=== PATIENT | female | born 1980 | race African-American/Black ===

== ENCOUNTER 2018-11-03 11:06 | Day surgery (SDC) | payer MEDICAID ==
[2018-11-03 12:56] LABS: ADD MAN DIFF? NO
[2018-11-03 13:00] LABS: WHITE BLOOD COUNT 5.6 10^3/ul (4.8-10.8)
[2018-11-03 13:00] LABS: BASOPHILS % 0.5 % (0.0-2.0); EOSINOPHILS # 0.3 10^3/ul (0.0-0.5); EOSINOPHILS % 5.9 % (0.0-7.0); HEMATOCRIT 37.5 % (37.0-47.0); HEMOGLOBIN 12.6 g/dl (12.0-16.0); LYMPHOCYTES # 2.1 10^3/ul (0.8-2.9); LYMPHOCYTES % 37.2 % (15.0-51.0); MEAN CORPUSCULAR HGB CONC 33.6 g/dl (32.0-37.0); MEAN CORPUSCULAR VOLUME 92.1 fl (82.0-101.0); MEAN PLATELET VOLUME 10.4 fl (7.4-10.4); MONOCYTE # 0.3 10^3/ul (0.3-0.9); MONOCYTES % 5.9 % (0.0-11.0); NEUTROPHIL # 2.8 10^3/ul (1.6-7.5); NEUTROPHILS % 50.3 % (39.0-77.0); PLATELET COUNT 207 10^3/UL (140-415); RED BLOOD COUNT 4.07 10^6/ul (4.20-5.40); RED CELL DISTRIBUTION WIDTH 13.4 % (11.5-14.5)
[2018-11-03 13:19] LABS: PROTIME 12.3 Sec (11.9-14.9)
[2018-11-03 13:20] LABS: PARTIAL THROMBOPLASTIN TIME 29.2 Sec (23.0-35.0)
[2018-11-03 13:24] LABS: ALANINE AMINOTRANSFERASE 19 IU/L (13-69); ALBUMIN 4.1 g/dl (3.3-4.9); ALBUMIN/GLOBULIN RATIO 1.13; ALKALINE PHOSPHATASE 72 IU/L (42-121); ANION GAP 6 (5-13); ASPARTATE AMINO TRANSFERASE 18 IU/L (15-46); BILIRUBIN,INDIRECT 0.5 mg/dl (0-1.1); BILIRUBIN,TOTAL 0.5 mg/dl (0.2-1.3); BLOOD UREA NITROGEN 13 mg/dl (7-20); CALCIUM 9.2 mg/dl (8.4-10.2); CARBON DIOXIDE 27 mmol/L (21-31); CHLORIDE 109 mmol/L (97-110); CREATININE 0.88 mg/dl (0.44-1.00); Estimated GFR > 60 mL/min (>60); GLUCOSE 90 mg/dl (70-220); POTASSIUM 3.7 mmol/L (3.5-5.1); SODIUM 142 mmol/L (135-144); TOTAL PROTEIN 7.7 g/dl (6.1-8.1)
[2018-11-03] MEDS ORDERED: MEPERIDINE 100 MG INJ (14:42)
[2018-11-03] MEDS ORDERED: PROPOFOL 20 ML (14:42)
[2018-11-03] MEDS ORDERED: LIDOCAINE 2% (SDV) 5 ML INJ (14:42)
[2018-11-03] MEDS ORDERED: CEFAZOLIN 1 GM INJ (14:42)
[2018-11-03] MEDS ORDERED: METOCLOPRAMIDE 10 MG INJ (14:42)
[2018-11-03] MEDS ORDERED: ONDANSETRON 4 MG INJ (14:42)
[2018-11-03] MEDS ORDERED: MIDAZOLAM 1 MG/ML 2 ML INJ IV (15:30)
[2018-11-03] MEDS ORDERED: DIPHENHYDRAMINE 50 MG INJ IV (15:30)
[2018-11-03] MEDS ORDERED: OXYCODONE/ACETAMINOPHEN (5/325) TAB PO ×2 (15:30)
[2018-11-03] MEDS ORDERED: FENTAnyl 50 MCG/ML VIAL IV ×3 (15:30)
[2018-11-03] MEDS ORDERED: MEPERIDINE 25 MG INJ IV (15:30)
[2018-11-03] MEDS ORDERED: METOCLOPRAMIDE 10 MG INJ IV (15:30)
[2018-11-03] MEDS ORDERED: LABETALOL HCL 20MG INJ IV (15:30)
[2018-11-03] MEDS ORDERED: ONDANSETRON 4 MG INJ IV (15:30)
[2018-11-03] MEDS ORDERED: hydrALAzine 20 MG INJ IV (15:30)
[2018-11-03] MEDS ORDERED: EPHEDrine SULFATE 50 MG/5 ML SYG IV (15:30)
[2018-11-03] MEDS ORDERED: HYDROmorphONE 1 MG/5 ML IV SYRINGE IV ×3 (15:30)
== END 2018-11-03 17:08 | disposition home or self-care (01) ==
LOC: SDS 11:06
DX: D24.2 Benign neoplasm of left breast (principal)
CPT/HCPCS: 19120; 80053; 85025; 85610; 85730; 88307